=== PATIENT | male | born 1985 | race Two or more races ===

== ENCOUNTER 2016-11-24 13:18 | Emergency (ER) | payer MEDICAID, OTHER ==
[~2016-11-24] VITALS: Ht 167.6 cm; Wt 75.0 kg
[2016-11-24 13:51] VITALS: BP 136/65
== END 2016-11-24 16:05 | disposition home or self-care (01) ==
LOC: ER 14:04
DX: S90.111A Contusion of right great toe without damage to nail, initial encounter (principal); J45.909 Unspecified asthma, uncomplicated; W22.01XA Walked into wall, initial encounter; Y93.89 Activity, other specified; Y92.89 Other specified places as the place of occurrence of the external cause; Y99.8 Other external cause status
CPT/HCPCS: 73630; 99284

== ENCOUNTER 2018-03-21 20:34 | Emergency (ER) | payer MEDICAID | END 2018-03-21 20:50 | disposition left against medical advice (07) | LOC: ER 20:34 | DX: Z53.21 Procedure and treatment not carried out due to patient leaving prior to being seen by health care provider (principal) ==